=== PATIENT | male | born 1970 | race Caucasian/White ===

== ENCOUNTER 2020-12-15 15:43 | Emergency (ER) | payer MEDICAID, SELFPAY ==
[2020-12-15 15:47] VITALS: BP 154/98; PULSE 122; RESP 18; TEMP 36.7; O2SAT 97
--- NOTE | 2020-12-15 15:54 | W.ED.GENAD ---
Discharge Plan Disposition Patient Disposition: HOME Condition: Stable Discharge Details Clinical Impression: Laceration of left thigh Primary Care Provider: Fransico Freeman ED Provider: Nadeen Martinez Discharge Instructions Instructions: Laceration (ED) Additional Instructions: Keep wound clean and dry. Cover wound with bandage if risk of contamination. Otherwise you can keep the wound open to air if resting at home to allow edges to dry and heal. Take the antibiotics as directed until finished. Return to the emergency department in 10 days for staple removal. Follow-up with your primary care doctor or return to the emergency department with any worsening or new concerning symptoms such as fever, increased pain, redness or swelling. Discharge Data Discharge Date/Time-TO BE ENTERED AT DEPARTURE: 12/15/20 17:30 Discharge Physician: Nadeen Martinez Medical Decision Making 50-year-old male presents with laceration to his left distal thigh after cut with a chain saw prior to arrival. Unsure his tetanus status. There is a 3 cm linear laceration noted to the left anterior medial distal thigh. Bleeding is well controlled. There is no evidence of foreign body, bony injury or deformity. Area irrigated well. Offered patient sutures or rubens and he is agreeable with plan for staple as it appears this will heal quite well due to the location and linear edges. Five rubens placed at site. Patient given a Boostrix here. Due to this being a potentially dirty wound, patient placed on oral antibiotics. Advised to return in 10 days for staple removal. Usual and customary return precautions given prior to discharge. HPI General Mode of arrival: ambulatory. Date/Time Provider Initiated Documentation: 12/15/20 15:44. Limitations to Documentation: no limitations. Information obtained by: patient. HPI Narrative: Patient is a 50-year-old male who presents to the ED with a complaint of left leg laceration sustained with a chainsaw prior to arrival. Patient states the chain saw cut through his jeans and down to his thigh. He states he is unsure of his tetanus status. He denies any other injuries. Related Data Allergies Allergy/AdvReac Type Severity Reaction Status Date / Time No Known Allergies Allergy Unverified 12/15/20 16:03 General Stated Complaint: Laceration TARA: 4 Review of Systems All systems reviewed & are unremarkable except as noted in HPI and below Constitutional Constitutional: Reports as per HPI, Denies chills and Denies fever(s) Eyes Eyes: Denies blurry vision ENT Ears, Nose, Mouth, and Throat: Denies dizziness, Denies sore throat and Denies throat swelling Cardiovascular Cardiovascular: Denies chest pain and Denies dyspnea Respiratory Respiratory: Denies cough and Denies dyspnea Gastrointestinal Gastrointestinal: Denies abdominal pain, Denies diarrhea and Denies vomiting Genitourinary Genitourinary: Denies hematuria and Denies dysuria Musculoskeletal Musculoskeletal: Denies back pain and Denies numbness Integumentary/Breasts Skin/Breast: Denies lesions and Denies rash Neurologic Neurologic: Denies dizziness, Denies localized weakness and Denies numbness Allergic/Immunologic Allergic/Immunologic: Denies throat swelling [facility] Medical History (Updated 12/15/20 @ 17:00 by Nadeen Martinez DO) No significant past medical history Surgical History (Updated 12/15/20 @ 16:09 by Nadeen Martinez DO) No significant past surgical history Social History Smoking/Tobacco Use Status: Never Smoking risk assessment performed?: Yes Substance use type: does not use Do you feel safe at home: Yes Do you feel safe in your relationship?: Yes Exam Const General: cooperative, healthy appearing and no acute distress HENMT Head: normal to inspection Mouth: oral mucosae normal Eyes General: appearance normal, both eyes and all related structures Neck Neck: normal visual inspection Resp Effort & Inspection: normal respiratory effort and able to speak in complete sentences Cardio Rate: regular rate Skin General skin exam: no rashes or lesions noted Neuro General: patient alert, patient awake and patient oriented x3 Motor: muscle tone normal throughout Extrem Knee images: 1. 3cm straight laceration located distal medial anterior thigh just above patella. No obvious foreign body. No bony injury or deformity. Other: Normal left leg plantar and dorsiflexion. Left DP/PT pulses intact Psych Appearance: grossly normal Affect: normal affect Course Vital Signs Vital signs: Vital Signs Temperature 98.1 F 12/15/20 15:47 Pulse 122 H 12/15/20 15:47 Respiratory Rate 18 12/15/20 15:47 Blood Pressure 154/98 H 12/15/20 15:47 Pulse Oximetry 97 12/15/20 15:47 Temperature 98.1 F 12/15/20 15:47 Temperature Source Temporal Artery Scan 12/15/20 15:47 Pulse 122 H 12/15/20 15:47 Respiratory Rate 18 12/15/20 15:47 Blood Pressure 154/98 H 12/15/20 15:47 Blood Pressure Position Sitting 12/15/20 15:47 Pulse Oximetry 97 12/15/20 15:47 Oxygen Delivery Method Room Air 12/15/20 15:47 Oxygen Flow Rate 0 12/15/20 15:47 Pain Level 1 12/15/20 15:47 Procedures Laceration Laceration 1: Site: lower extremity Side (If applicable): left Size (cm): 3 Description: linear Depth: simple, single layer Local Anesthetic: Lidocaine 1% Amount of anesthesia used (mL): 4 Pre-repair: wound explored, irrigated extensively and deep structures intact Skin layer closed with: other (rubens) Number of sutures: 5 Technique: simple, interrupted
[2020-12-15] MEDS: Cephalexin 500 MG CAP, 4 CAPS/BTL PO (17:17)
[2020-12-15] MEDS: Cephalexin 500 MG CAP PO (17:17)
== END 2020-12-15 17:30 | disposition home or self-care (01) ==
PROVIDERS: Emergency Provider Physician Assistant; PCP Internal Medicine
DX: S71.112A Laceration without foreign body, left thigh, initial encounter (principal); W29.3XXA Contact with powered garden and outdoor hand tools and machinery, initial encounter
CPT/HCPCS: 12002; 90471

== ENCOUNTER 2020-12-27 14:41 | Emergency (ER) | payer MEDICAID, SELFPAY ==
[2020-12-27 14:45] VITALS: BP 144/105; PULSE 83; RESP 18; O2SAT 99
--- NOTE | 2020-12-27 14:54 | W.ED.GENAD ---
Discharge Plan Disposition Patient Disposition: HOME Condition: Stable Discharge Details Clinical Impression: Removal of staple Primary Care Provider: Fransico Freeman ED Provider: Everett Murray Discharge Instructions Additional Instructions: 5 rubens removed without difficulty. Keep the area clean and dry. Please watch for new or worsening symptoms and return to the ER for any concerns Medical Decision Making 50-year-old gentleman presents for staple removal. He appears well, nontoxic. No evidence of secondary infection. 5 rubens removed by me without difficulty using a staple remover. Medical Records Medical records reviewed: Yes I reviewed the patient's medical records. HPI General Mode of arrival: ambulatory. Date/Time Provider Initiated Documentation: 12/27/20 14:45. Limitations to Documentation: no limitations. Information obtained by: patient. HPI Narrative: This is a 50-year-old gentleman presenting for staple removal from a laceration on his left upper leg placed 12 days ago. Patient denies fever, numbness, tingling, weakness. He has no additional concerns or questions. He is currently asymptomatic Related Data Allergies Allergy/AdvReac Type Severity Reaction Status Date / Time No Known Allergies Allergy Unverified 12/15/20 16:03 General Stated Complaint: SutureRem TARA: 4 Review of Systems Constitutional Constitutional: Denies fever(s) Musculoskeletal Musculoskeletal: Denies numbness and Denies tingling Integumentary/Breasts Skin/Breast: Denies erythema Neurologic Neurologic: Denies numbness and Denies tingling COUNTS INCLUDE 234 BEDS AT THE [facility] Medical History No significant past medical history Surgical History No significant past surgical history Social History Smoking/Tobacco Use Status: Never Smoking risk assessment performed?: Yes Substance use type: does not use Do you feel safe at home: Yes Do you feel safe in your relationship?: Yes Exam Const General: cooperative, healthy appearing, comfortable and no acute distress Orientation: alert and awake [facility] Head: normal to inspection, normocephalic and atraumatic Eyes General: appearance normal, both eyes and all related structures Conjunctivae: conjunctivae normal Neck Neck: normal visual inspection, trachea midline and supple Resp Effort & Inspection: normal respiratory effort and able to speak in complete sentences Skin General skin exam: no rashes or lesions noted Neuro General: patient alert, patient awake, moves all extremities and no focal motor deficits Cognition: normal cognition Speech: speech normal Gait: normal gait Motor: muscle tone normal throughout Sensory Exam: no sensory deficits noted Extrem General: full ROM Upper/lower leg/hip images: 1. There is a well approximated, nicely healing laceration with 5 rubens. No warmth, erythema, drainage or discharge. No tenderness. Neuro, vascular, tendon intact Psych Appearance: grossly normal Mental Status: mental status grossly normal Course Vital Signs Vital signs: Vital Signs Pulse 83 12/27/20 14:45 Respiratory Rate 18 12/27/20 14:45 Blood Pressure 144/105 H 12/27/20 14:45 Pulse Oximetry 99 12/27/20 14:45 Pulse 83 12/27/20 14:45 Respiratory Rate 18 12/27/20 14:45 Respiratory Effort Non-Labored 12/27/20 14:48 Blood Pressure 144/105 H 12/27/20 14:45 Blood Pressure Position Sitting 12/27/20 14:45 Pulse Oximetry 99 12/27/20 14:45 Oxygen Delivery Method Room Air 12/27/20 14:45 Oxygen Flow Rate 0 12/27/20 14:45 Pain Level 0 12/27/20 14:45 PAWSS Have you Been Recently Intoxicated or Drunk Within the Last 30 days?: No Have you Ever Experienced Previous Episodes of Alcohol Withdrawal?: No Have you ever Experienced Withdrawal Seizures?: No Have you ever Experienced Delirium Tremens(DT)s?: No Have you ever undergone Alcohol Rehabilitation Treatment (i.e, inpt ot outpatient treatment programs)?: No Have you ever Experienced Blackouts?: No Have you ever Combined Alcohol with other Downers within the last 90 days?: No Have you ever Combined Alcohol with any other Substance of Abuse during the last 90 days?: No Positive Blood Alcohol level on Presentation? [PCS.BAL]: No Evidence of Increased Autonomic Activity (i.e. HR>120, tremor, sweating, agitation, nausea)?: No Result: 0
[2020-12-27 15:04] VITALS: BP 166/101; PULSE 84; RESP 16; O2SAT 99
== END 2020-12-27 15:09 | disposition home or self-care (01) ==
LOC: ER 15:07
PROVIDERS: Emergency Provider Physician Assistant; PCP Internal Medicine
DX: S71.112D Laceration without foreign body, left thigh, subsequent encounter (principal); X58.XXXD Exposure to other specified factors, subsequent encounter; Z48.02 Encounter for removal of sutures

== ENCOUNTER → 2022-12-05 17:08 | Outpatient (CLI) | payer MEDICAID, SELFPAY ==
--- NOTE | 2022-12-05 | DI.US_ITS ---
Exam(s) US LOWER EXTREMITY VENOUS LT EXAM: US LOWER EXTREMITY VENOUS LT CLINICAL HISTORY: SWELLING LT LOWER LEG,?DVT TECHNIQUE: Left lower extremity venous ultrasound performed using grayscale, color-flow, and spectra l Doppler analysis. COMPARISON: No exams were available for comparison FINDINGS: The left common femoral, femoral and popliteal veins demonstrate normal compressibility, augmentation , and color Doppler. The posterior tibial and peroneal veins are patent. The saphenofemoral junction is unremarkable. There is no evidence of a Whitley cyst. The soft tissues are unremarkable. IMPRESSION: No evidence of a left lower extremity DVT. DATA REPOSITORY:
== END ==
PROVIDERS: PCP Internal Medicine; Visit Provider Physician Assistant
DX: R22.42 Localized swelling, mass and lump, left lower limb (principal)
CPT/HCPCS: 93971

== ENCOUNTER 2023-09-11 14:37 | Outpatient (REF) | payer MEDICAID, SELFPAY ==
[2023-09-11 19:11] LABS: ALT 24 U/L (16-63); AST 16 U/L (15-37); Alkaline Phosphatase 53 U/L (46-116); Anion Gap 5.2 mmol/L (3-11); BUN 16 mg/dL (7-18); Bilirubin, Total 0.6 mg/dL (0.2-1.0); CO2 31.8 mmol/L (21.0-32.0); Calcium 9.3 mg/dL (8.5-10.1); Calculated LDL 141 mg/dL (<100); Chloride 105 mmol/L (98-107); Cholesterol 236 mg/dL (<200); Estimated GFR 91.12 (mL/min/1.73m2); Glucose 109 mg/dL (74-106); HDL Cholesterol 83 mg/dL (40-60); Potassium 4.3 mmol/L (3.5-5.1); Sodium 142 mmol/L (136-145); Total Protein 7.4 g/dL (6.4-8.2); Triglyceride 62 mg/dL (<150)
[2023-09-11 19:12] LABS: Hemoglobin A1C 5.2 % (<5.7)
[2023-09-14 11:07] LABS: Hepatitis C Ab w Rflx HCV PCR Negative (Negative)
[2023-09-14 11:24] LABS: HIV-1/2 Ag & Ab Screen Negative (Negative)
== END 2023-09-11 14:38 | disposition home or self-care (01) ==
LOC: NCHCN 14:37
PROVIDERS: PCP Internal Medicine; Visit Provider Physician Assistant
DX: Z13.6 Encounter for screening for cardiovascular disorders (principal); Z13.1 Encounter for screening for diabetes mellitus; R03.0 Elevated blood-pressure reading, without diagnosis of hypertension
CPT/HCPCS: 80053; 80061; 86803; 87389; 83036

== ENCOUNTER 2025-01-10 14:23 | Outpatient (REF) | payer MEDICAID, SELFPAY ==
[2025-01-10 20:09] LABS: HCT 45.3 % (40.0-50.0); HGB 15.2 g/dL (13.5-17.5); MCH 31.7 pg (27.0-33.0); MCHC 33.6 % (32.0-36.0); MCV 95 fL (80-95); MPV 10.6 fL (8.0-11.0); Platelet Count 354 10^3/uL (130-400); RBC 4.79 10^6/uL (4.36-5.78); RDW 12.6 % (11.8-14.1); RDW-SD 43.8 fL; WBC 4.44 10^3/uL (4.4-10.8)
[2025-01-10 20:26] LABS: Anion Gap 7.8 mmol/L (3-11); BUN 14 mg/dL (7-18); CO2 30.2 mmol/L (21.0-32.0); Calcium 9.2 mg/dL (8.5-10.1); Chloride 104 mmol/L (98-107); Estimated GFR 72.31 (mL/min/1.73m2); Glucose 92 mg/dL (74-106); Potassium 4.5 mmol/L (3.5-5.1); Sodium 142 mmol/L (136-145)
== END 2025-01-10 14:24 | disposition home or self-care (01) ==
LOC: NCHCN 14:23
PROVIDERS: PCP Internal Medicine; Visit Provider Nurse Practitioner Family
DX: N20.0 Calculus of kidney (principal)
CPT/HCPCS: 80048; 85027